=== PATIENT | male | born 1935 ===

== ENCOUNTER → 2016-09-20 | Outpatient (CLI) | payer OTHER, BC | LOC: BHLMT 14:30 | PROVIDERS: ATTEND Internal Medicine Cardiovascular Disease | DX: I48.2 Chronic atrial fibrillation (principal); E78.5 Hyperlipidemia, unspecified; I10 Essential (primary) hypertension; R70.0 Elevated erythrocyte sedimentation rate | CPT/HCPCS: 93005-PO ==

== ENCOUNTER → 2016-09-28 | Outpatient (CLI) | payer OTHER, BC | LOC: BHLMT 10:00 | PROVIDERS: ATTEND Internal Medicine Interventional Cardiology | DX: I48.91 Unspecified atrial fibrillation (principal); I10 Essential (primary) hypertension; R01.1 Cardiac murmur, unspecified | CPT/HCPCS: 93306-PO ==

== ENCOUNTER → 2017-10-24 | Outpatient (CLI) | payer OTHER, BC | LOC: BHLMT 10:15 | PROVIDERS: ATTEND Internal Medicine Cardiovascular Disease | DX: I48.2 Chronic atrial fibrillation (principal); E78.5 Hyperlipidemia, unspecified; I35.0 Nonrheumatic aortic (valve) stenosis; I45.2 Bifascicular block | CPT/HCPCS: 93005-PO ==